=== PATIENT | male | born 1970 | race Caucasian/White ===

== ENCOUNTER 2021-12-27 06:43 | Emergency (ER) | payer MEDICARE, MEDICAID ==
[~2021-12-27] VITALS: Ht 175.3 cm; Wt 87.0 kg
[2021-12-27 08:33] LABS: BASOPHILS % 0.6 % (0.0-2.0); EOSINOPHILS % 1.8 % (0.0-5.0); HEMOGLOBIN. 13.4 g/dL (14.0-18.0); LYMPHOCYTES % 12.8 % (20.0-50.0); MEAN CORPUSCULAR VOLUME 91.8 fL (80.0-94.0); MONOCYTES % 7.2 % (2.0-8.0); NEUTROPHILS % 77.6 % (40.0-76.0); PLATELET 215 x1000/uL (130-400); RED BLOOD CELL COUNT 4.47 mill/uL (4.7-6.1); RED CELL DISTRIBUTION WIDTH 14.2 % (11.6-14.6)
[2021-12-27 08:39] LABS: CHLORIDE 105 mEq/L (98-107)
[2021-12-27] MEDS ORDERED: MIDAZOLAM HCL 2 MG/2 ML VIAL IV ONE (09:45)
[2021-12-27 13:33] LABS: BG BASE EXCESS 0.2 mmol/L (-2.0-2.0); BG CARBOXYHEMOGLOBIN 0.5 % (0.5-1.5); BG DEOXYHEMOGLOBIN 3.8 % (0.0-5.0); BG FRACTION INSPIRED OXYGEN 28; BG HCO3 ACT 25.3 mmol/L (22.0-26.0); BG METHEMOGLOBIN 0.3 % (0.0-1.5); BG OXYGEN SATURATION 96.2 % (92.0-98.5); BG OXYHEMOGLOBIN 95.4 % (94.0-97.0); BG PCO2 42.4 mmHg (35.0-45.0); BG PH 7.393 (7.350-7.450); BG PO2 82.8 mmHg (75.0-100.0); BG SAMPLE SITE LEFT RADIAL; BG TOTAL HEMOGLOBIN 13.7 g/dL (12.0-18.0); BG VENT MODE NASAL CANNULA
[2021-12-27 19:07] VITALS: BP 159/89
== END 2021-12-27 19:11 | disposition home or self-care (01) ==
LOC: ER 06:43
DX: R25.1 Tremor, unspecified (principal); N28.9 Disorder of kidney and ureter, unspecified; I10 Essential (primary) hypertension; I69.320 Aphasia following cerebral infarction
CPT/HCPCS: 36415; 36600; 71045; 80053; 82375; 82805; 85025; 96374; 99284; J2250

== ENCOUNTER 2021-12-30 07:09 | Inpatient (IN) | payer MEDICARE, MEDICAID ==
[~2021-12-30] VITALS: Ht 177.8 cm; Wt 99.8 kg
[2021-12-30] MEDS ORDERED: ACETAMINOPHEN 325MG TABLET PO STA (08:17)
[2021-12-30] MEDS ORDERED: CEFTRIAXONE 1 G PREMIX 50 ML IV ONE (08:30)
[2021-12-30] MEDS ORDERED: SODIUM CHLORIDE 0.9% 1,000 ML IV ONE (08:30)
[2021-12-30 09:07] LABS: CLARITY URINE CLEAR (CLEAR); COLOR URINE DARK YELLOW (YELLOW); KETONES URINE 1+ (NEGATIVE); LEUKOCYTE ESTERASE URINE NEGATIVE (NEGATIVE); NITRITE URINE NEGATIVE (NEGATIVE); OCCULT BLOOD URINE 2+ (NEGATIVE); PH URINE 5.5 (4.5-8.0); PROTEIN URINE 3+ (NEGATIVE); SPECIFIC GRAVITY URINE 1.036 (1.005-1.030)
[2021-12-30 09:08] LABS: HEMATOCRIT. 41.9 % (42.0-52.0); HEMOGLOBIN. 13.9 g/dL (14.0-18.0); MEAN CORPUSCULAR HEMOGLOBIN 30.1 pg (28.0-32.0); MEAN PLATELET VOLUME 9.3 fl (7.4-10.4); PLATELET 232 x1000/uL (130-400); RED BLOOD CELL COUNT 4.61 mill/uL (4.7-6.1); RED CELL DISTRIBUTION WIDTH 14.5 % (11.6-14.6)
[2021-12-30 09:12] LABS: CHLORIDE 113 mEq/L (98-107)
[2021-12-30 10:18] LABS: PLATELET ESTIMATE NORMAL
[2021-12-30] MEDS ORDERED: MIDAZOLAM HCL 2 MG/2 ML VIAL IM ONE (11:00)
[2021-12-30] MEDS ORDERED: KETOROLAC 15MG/ML VIAL IV ONE (12:00)
[2021-12-30] MEDS ORDERED: MIDAZOLAM HCL 2 MG/2 ML VIAL IV ONE (13:00)
[2021-12-30] MEDS ORDERED: HALOPERIDOL LACTATE 5MG/ML VIAL IM ONE (14:00)
[2021-12-30 15:33] VITALS: BP 156/98
[2021-12-30] MEDS ORDERED: LEVETIRACETAM 500MG PREMIX 100 ML IV SCH ×3 (15:45→20:00)
[2021-12-30] MEDS ORDERED: ACETAMINOPHEN 650MG/20.3ML UDC PO ONE (15:45)
[2021-12-30] MEDS ORDERED: LORAZEPAM 1MG TABLET PO PRN ×2 (15:45→16:00)
[2021-12-30 16:00] VITALS: BP 156/98
[2021-12-30] MEDS ORDERED: ACETAMINOPHEN 650MG/20.3ML UDC PO PRN (16:00)
[2021-12-30] MEDS: ACETAMINOPHEN 650MG SUPP PR PRN ×2 (16:27→20:56)
[2021-12-30] MEDS ORDERED: ASPI-1497 PO (17:40)
[2021-12-30] MEDS ORDERED: GABA-532 PO (17:40)
[2021-12-30] MEDS ORDERED: CLON1TAB23 PO (17:40)
[2021-12-30] MEDS ORDERED: BACL20TA PO (17:40)
[2021-12-30] MEDS ORDERED: ATOR40TA70 PO (17:40)
[2021-12-30] MEDS ORDERED: KEPP500 PO (17:42)
[2021-12-30] MEDS ORDERED: PRIM50TA5 PO (17:42)
[2021-12-30] MEDS ORDERED: DEXT 5%/0.45% NACL 1000ML 1,000 ML IV SCH (18:00)
[2021-12-30 20:00] VITALS: BP 122/91
[2021-12-30 20:39] LABS: BG BASE EXCESS 0.4 mmol/L (-2.0-2.0); BG CARBOXYHEMOGLOBIN 0.3 % (0.5-1.5); BG DEOXYHEMOGLOBIN 0.7 % (0.0-5.0); BG FRACTION INSPIRED OXYGEN 100; BG HCO3 ACT 22.8 mmol/L (22.0-26.0); BG METHEMOGLOBIN 0.4 % (0.0-1.5); BG OXYGEN SATURATION 99.3 % (92.0-98.5); BG OXYHEMOGLOBIN 98.6 % (94.0-97.0); BG PCO2 30.4 mmHg (35.0-45.0); BG PH 7.493 (7.350-7.450); BG SAMPLE SITE RIGHT FEMORAL; BG TOTAL HEMOGLOBIN 12.9 g/dL (12.0-18.0); BG VENT MODE MASK - NRB
[2021-12-30] MEDS: DIAZEPAM 5 MG/ML 2ML CPJ IV PRN (20:57)
[2021-12-30] MEDS ORDERED: CLONAZEPAM 1MG TABLET PO SCH (22:00)
[2021-12-31] VITALS (8 sets, daily range): BP systolic 119–178; BP diastolic 60–96
[2021-12-31] MEDS: ACETAMINOPHEN 650MG SUPP PR PRN ×5 (00:52→18:19)
[2021-12-31] MEDS: DIAZEPAM 5 MG/ML 2ML CPJ IV PRN (04:57)
[2021-12-31 06:42] LABS: BASOPHILS % 0.6 % (0.0-2.0); HEMATOCRIT. 39.6 % (42.0-52.0); HEMOGLOBIN. 12.5 g/dL (14.0-18.0); LYMPHOCYTES % 13.1 % (20.0-50.0); MEAN CORPUSCULAR HEMOGLOBIN 29.7 pg (28.0-32.0); NEUTROPHILS % 75.3 % (40.0-76.0); RED BLOOD CELL COUNT 4.21 mill/uL (4.7-6.1); RED CELL DISTRIBUTION WIDTH 14.9 % (11.6-14.6)
[2021-12-31] MEDS ORDERED: POTASSIUM CHLORIDE INJ 40 MEQ in DEXT 5% WATER 250 ML IV ONE (08:15)
[2021-12-31] MEDS ORDERED: LORAZEPAM 1MG TABLET PO PRN (08:45)
[2021-12-31] MEDS ORDERED: CEFTRIAXONE 1,000 MG in DEXTROSE 5% WATER 50 ML IV SCH (09:00)
[2021-12-31] MEDS: DEXTROSE 5% WATER 1,000 ML IV SCH ×2 (09:34→17:34)
[2021-12-31 09:46] LABS: BG BASE EXCESS -1.7 mmol/L (-2.0-2.0); BG CARBOXYHEMOGLOBIN 0.3 % (0.5-1.5); BG DEOXYHEMOGLOBIN 1.2 % (0.0-5.0); BG FRACTION INSPIRED OXYGEN 100; BG HCO3 ACT 21.3 mmol/L (22.0-26.0); BG METHEMOGLOBIN 0.4 % (0.0-1.5); BG OXYGEN SATURATION 98.8 % (92.0-98.5); BG OXYHEMOGLOBIN 98.1 % (94.0-97.0); BG PCO2 31.1 mmHg (35.0-45.0); BG PH 7.453 (7.350-7.450); BG PO2 170.8 mmHg (75.0-100.0); BG SAMPLE SITE RIGHT RADIAL; BG TOTAL HEMOGLOBIN 13.7 g/dL (12.0-18.0); BG VENT MODE MASK - NRB
[2021-12-31 09:48] LABS: PLATELET 91 x1000/uL (130-400)
[2021-12-31] MEDS ORDERED: LORAZEPAM 2MG/ML CPJ IV NR (10:15)
[2021-12-31] MEDS ORDERED: LIDOCAINE HCL/PF 1% 10 MG/ML 5ML VIAL ONE (12:56)
[2021-12-31] MEDS ORDERED: VANCOMYCIN 2,000 MG in DEXT 5% WATER 500 ML IV SCH (13:00)
[2021-12-31] MEDS: LEVETIRACETAM 500MG PREMIX 100 ML IV SCH ×2 (13:05→22:18)
[2021-12-31] MEDS: ACETYLCYSTEINE 100MG/ML 10% VIAL 4ML INH SCH (13:17)
[2021-12-31] MEDS: IPRATROPIUM BROMIDE (0.02%) 0.5MG/2.5ML NEB HHN SCH (13:17)
[2021-12-31] MEDS: KCL 20MEQ/100ML X 2 FOR TOTAL KCL 40MEQ/200ML IV SCH ×2 (14:10→17:18)
[2021-12-31] MEDS: METRONIDAZOLE 500 MG PREMIX 100 ML IV SCH ×2 (17:33→22:17)
[2021-12-31 17:38] LABS: PARTIAL THROMBOPLASTIN TIME 28.7 sec (23.4-31.0); PROTHROMBIN TIME 10.9 sec (9.6-11.0)
[2021-12-31 21:58] LABS: CREATINE KINASE 27108 IU/L (39-308)
[2022-01-01] VITALS (12 sets, daily range): BP systolic 51–136; BP diastolic 20–91
[2022-01-01] MEDS: IPRATROPIUM BROMIDE (0.02%) 0.5MG/2.5ML NEB HHN SCH ×3 (00:20→16:36)
[2022-01-01] MEDS: ACETYLCYSTEINE 100MG/ML 10% VIAL 4ML INH SCH ×3 (00:21→16:36)
[2022-01-01] MEDS: DEXTROSE 5% WATER 1,000 ML IV SCH (00:48)
[2022-01-01] MEDS ORDERED: VANCOMYCIN 1GM PMX (XELLIA) 200 ML IV SCH (06:00)
[2022-01-01] MEDS: LEVETIRACETAM 500MG PREMIX 100 ML IV SCH ×2 (09:00→20:48)
[2022-01-01] MEDS ORDERED: CEFTRIAXONE 1 G PREMIX 50 ML IV SCH (11:30)
[2022-01-01] MEDS: SODIUM BICARBONATE 100 MEQ in DEXTROSE 5% WATER 1,000 ML IV SCH ×2 (12:58→20:48)
[2022-01-01] MEDS: CEFTRIAXONE 1,000 MG in DEXTROSE 5% WATER 50 ML IV SCH (12:58)
[2022-01-01] MEDS: METRONIDAZOLE 500 MG PREMIX 100 ML IV SCH ×2 (12:59→20:48)
[2022-01-01 14:21] LABS: *AMPHETAMINES SCREEN URINE PRESUMTIVE POSITIVE (NEGATIVE); *BARBITURATES SCREEN URINE NEGATIVE (NEGATIVE); *BENZODIAZEPINES SCREEN URINE PRESUMTIVE POSITIVE (NEGATIVE); *COCAINE SCREEN URINE NEGATIVE (NEGATIVE); CANNABINOID URINE SCREEN NEGATIVE (NEGATIVE); METHADONE URINE SCREEN NEGATIVE (NEGATIVE); OPIATES URINE SCREEN NEGATIVE (NEGATIVE); PHENCYCLIDINE URINE SCREEN NEGATIVE (NEGATIVE)
[2022-01-01] MEDS: PANTOPRAZOLE SODIUM 40 MG/VIAL IV SCH (16:27)
[2022-01-01] MEDS: ACETAMINOPHEN 650MG SUPP PR PRN (17:03)
[2022-01-01 17:11] LABS: CREATINE KINASE > 51000 IU/L (39-308)
[2022-01-01 18:48] LABS: TOTAL IRON BINDING CAPACITY 247 ug/dL (250-450)
[2022-01-01 19:21] LABS: FOLIC ACID (FOLATE) SERUM 14.3 ng/mL (>5.38)
[2022-01-01] MEDS ORDERED: BISACODYL 10MG SUPP PR NR (21:00)
[2022-01-02] VITALS (12 sets, daily range): BP systolic 90–162; BP diastolic 26–89
[2022-01-02] MEDS: IPRATROPIUM BROMIDE (0.02%) 0.5MG/2.5ML NEB HHN SCH ×3 (00:10→16:57)
[2022-01-02] MEDS: ACETYLCYSTEINE 100MG/ML 10% VIAL 4ML INH SCH ×3 (00:10→16:57)
[2022-01-02] MEDS: SODIUM BICARBONATE 100 MEQ in DEXTROSE 5% WATER 1,000 ML IV SCH ×2 (05:06→16:33)
[2022-01-02] MEDS: METRONIDAZOLE 500 MG PREMIX 100 ML IV SCH ×3 (05:06→22:47)
[2022-01-02 06:12] LABS: HEMATOCRIT. 38.2 % (42.0-52.0); HEMOGLOBIN. 12.6 g/dL (14.0-18.0); MEAN CORPUSCULAR HEMOGLOBIN 29.8 pg (28.0-32.0); MEAN CORPUSCULAR VOLUME 90.2 fL (80.0-94.0); MEAN PLATELET VOLUME 11.1 fl (7.4-10.4); PLATELET 59 x1000/uL (130-400); RED BLOOD CELL COUNT 4.24 mill/uL (4.7-6.1); RED CELL DISTRIBUTION WIDTH 15.1 % (11.6-14.6)
[2022-01-02 07:07] LABS: CHLORIDE 111 mEq/L (98-107)
[2022-01-02 08:31] LABS: BG BASE EXCESS 0.7 mmol/L (-2.0-2.0); BG CARBOXYHEMOGLOBIN 0.2 % (0.5-1.5); BG DEOXYHEMOGLOBIN 0.8 % (0.0-5.0); BG FRACTION INSPIRED OXYGEN 80; BG HCO3 ACT 24.5 mmol/L (22.0-26.0); BG METHEMOGLOBIN 0.4 % (0.0-1.5); BG OXYGEN SATURATION 99.2 % (92.0-98.5); BG OXYHEMOGLOBIN 98.6 % (94.0-97.0); BG PCO2 36.6 mmHg (35.0-45.0); BG PH 7.444 (7.350-7.450); BG PO2 192.5 mmHg (75.0-100.0); BG SAMPLE SITE RIGHT RADIAL; BG VENT MODE HIGH FLOW
[2022-01-02] MEDS: LEVETIRACETAM 500MG PREMIX 100 ML IV SCH ×2 (08:44→21:10)
[2022-01-02] MEDS: PANTOPRAZOLE SODIUM 40 MG/VIAL IV SCH (08:44)
[2022-01-02 09:57] LABS: CREATINE KINASE 90984 IU/L (39-308)
[2022-01-02] MEDS: CEFTRIAXONE 1,000 MG in DEXTROSE 5% WATER 50 ML IV SCH (11:05)
[2022-01-02] MEDS ORDERED: KCL 20MEQ/100ML PREMIX 100 ML IV NR (12:00)
[2022-01-02] MEDS: METOPROLOL TARTRATE 5MG/5ML VIAL IV PRN (14:54)
[2022-01-02] MEDS ORDERED: KCL 20MEQ/100ML PREMIX 100 ML IV SCH (16:00)
[2022-01-03] VITALS (12 sets, daily range): BP systolic 86–184; BP diastolic 34–136
[2022-01-03] MEDS: ACETYLCYSTEINE 100MG/ML 10% VIAL 4ML INH SCH ×2 (00:34→08:11)
[2022-01-03] MEDS: IPRATROPIUM BROMIDE (0.02%) 0.5MG/2.5ML NEB HHN SCH ×3 (00:34→17:09)
[2022-01-03] MEDS: METOPROLOL TARTRATE 5MG/5ML VIAL IV PRN ×2 (00:57→13:17)
[2022-01-03] MEDS: SODIUM BICARBONATE 100 MEQ in DEXTROSE 5% WATER 1,000 ML IV SCH ×2 (01:07→09:15)
[2022-01-03] MEDS: METRONIDAZOLE 500 MG PREMIX 100 ML IV SCH ×3 (05:12→21:18)
[2022-01-03 06:17] LABS: HEMATOCRIT. 32.9 % (42.0-52.0); HEMOGLOBIN. 11.1 g/dL (14.0-18.0); MEAN CORPUSCULAR HEMOGLOBIN 30.3 pg (28.0-32.0); MEAN CORPUSCULAR VOLUME 89.9 fL (80.0-94.0); MEAN PLATELET VOLUME 11.8 fl (7.4-10.4); PLATELET 52 x1000/uL (130-400); RED BLOOD CELL COUNT 3.66 mill/uL (4.7-6.1); RED CELL DISTRIBUTION WIDTH 14.4 % (11.6-14.6)
[2022-01-03 06:34] LABS: CHLORIDE 102 mEq/L (98-107)
[2022-01-03] MEDS: LEVETIRACETAM 500MG PREMIX 100 ML IV SCH ×2 (09:15→20:17)
[2022-01-03] MEDS: PANTOPRAZOLE SODIUM 40 MG/VIAL IV SCH (09:15)
[2022-01-03 10:51] LABS: PLATELET ESTIMATE MARKEDLY DECREASED
[2022-01-03] MEDS: SODIUM CHLORIDE 0.9% 1,000 ML IV SCH ×2 (10:56→20:17)
[2022-01-03] MEDS: CEFTRIAXONE 1,000 MG in DEXTROSE 5% WATER 50 ML IV SCH (11:19)
[2022-01-03 13:55] LABS: PLATELET ESTIMATE MARKEDLY DECREASED
[2022-01-04] VITALS (12 sets, daily range): BP systolic 103–149; BP diastolic 63–95
[2022-01-04] MEDS: ACETYLCYSTEINE 100MG/ML 10% VIAL 4ML INH SCH ×3 (00:10→15:52)
[2022-01-04] MEDS: IPRATROPIUM BROMIDE (0.02%) 0.5MG/2.5ML NEB HHN SCH ×2 (00:10→08:18)
[2022-01-04] MEDS: METRONIDAZOLE 500 MG PREMIX 100 ML IV SCH ×3 (06:08→21:53)
[2022-01-04] MEDS: SODIUM CHLORIDE 0.9% 1,000 ML IV SCH ×2 (06:08→17:17)
[2022-01-04 06:46] LABS: HEMATOCRIT. 30.6 % (42.0-52.0); HEMOGLOBIN. 10.2 g/dL (14.0-18.0); MEAN CORPUSCULAR HEMOGLOBIN 30.5 pg (28.0-32.0); MEAN CORPUSCULAR VOLUME 90.9 fL (80.0-94.0); MEAN PLATELET VOLUME 10.5 fl (7.4-10.4); PLATELET 67 x1000/uL (130-400); RED BLOOD CELL COUNT 3.36 mill/uL (4.7-6.1); RED CELL DISTRIBUTION WIDTH 14.6 % (11.6-14.6)
[2022-01-04] MEDS: LEVETIRACETAM 500MG PREMIX 100 ML IV SCH ×2 (09:32→21:52)
[2022-01-04] MEDS: PANTOPRAZOLE SODIUM 40 MG/VIAL IV SCH (09:33)
[2022-01-04] MEDS: CEFTRIAXONE 1,000 MG in DEXTROSE 5% WATER 50 ML IV SCH (11:51)
[2022-01-04] MEDS: IPRATROPIUM/ALBUTEROL 0.5-3(2.5)MG/3ML NEB HHN SCH (15:52)
[2022-01-04] MEDS ORDERED: FAMOTIDINE 20MG/2ML VIAL IV SCH (21:00)
[2022-01-05] VITALS (12 sets, daily range): BP systolic 113–164; BP diastolic 17–109
[2022-01-05] MEDS: ACETYLCYSTEINE 100MG/ML 10% VIAL 4ML INH SCH ×2 (00:19→08:11)
[2022-01-05] MEDS: IPRATROPIUM/ALBUTEROL 0.5-3(2.5)MG/3ML NEB HHN SCH ×4 (00:20→22:00)
[2022-01-05] MEDS: SODIUM CHLORIDE 0.9% 1,000 ML IV SCH ×3 (02:39→17:03)
[2022-01-05] MEDS: METRONIDAZOLE 500 MG PREMIX 100 ML IV SCH ×3 (05:39→22:15)
[2022-01-05] MEDS ORDERED: PHENYTOIN SODIUM 1,000 MG in SODIUM CHLORIDE 0.9% 100 ML IV NR (07:30)
[2022-01-05] MEDS: FAMOTIDINE 20MG/2ML VIAL IV SCH (08:08)
[2022-01-05] MEDS: METOPROLOL TARTRATE 5MG/5ML VIAL IV PRN (09:05)
[2022-01-05] MEDS: CEFTRIAXONE 1,000 MG in DEXTROSE 5% WATER 50 ML IV SCH (12:13)
[2022-01-05 13:06] LABS: ANTI-NUCLEAR ANTIBODIES DIRECT Negative (Negative); ATYPICAL P-ANCA <1:20 titer (Neg:<1:20); CYTOPLASMIC C-ANCA <1:20 titer (Neg:<1:20); PERINUCLEAR P-ANCA <1:20 titer (Neg:<1:20)
[2022-01-05 13:55] LABS: PLATELET ESTIMATE DECREASED
[2022-01-05] MEDS: PHENYTOIN SODIUM EXTENDED 100MG CAPSULE PO SCH ×2 (14:27→22:14)
[2022-01-05 19:09] LABS: ANTI-MYELOPEROXIDASE AB < 0.2 units (0.0-0.9); ANTI-PROTEINASE 3 ABS < 0.2 units (0.0-0.9)
[2022-01-06] VITALS (12 sets, daily range): BP systolic 121–169; BP diastolic 74–102
[2022-01-06 06:38] LABS: HEMATOCRIT. 32.4 % (42.0-52.0); HEMOGLOBIN. 10.7 g/dL (14.0-18.0); MEAN CORPUSCULAR HEMOGLOBIN 30.3 pg (28.0-32.0); MEAN CORPUSCULAR VOLUME 92.2 fL (80.0-94.0); MEAN PLATELET VOLUME 9.3 fl (7.4-10.4); PLATELET 190 x1000/uL (130-400); RED BLOOD CELL COUNT 3.52 mill/uL (4.7-6.1); RED CELL DISTRIBUTION WIDTH 14.8 % (11.6-14.6)
[2022-01-06 06:45] LABS: PHOSPHORUS 4.8 mg/dL (2.5-4.9)
[2022-01-06] MEDS: FAMOTIDINE 20MG/2ML VIAL IV SCH (09:14)
[2022-01-06] MEDS: PHENYTOIN SODIUM EXTENDED 100MG CAPSULE PO SCH ×3 (09:16→21:36)
[2022-01-06] MEDS: SODIUM CHLORIDE 0.45% 1,000 ML IV SCH ×2 (09:37→17:38)
[2022-01-06] MEDS: AMLODIPINE 10MG TABLET PO SCH (09:37)
[2022-01-06] MEDS: IPRATROPIUM/ALBUTEROL 0.5-3(2.5)MG/3ML NEB HHN SCH ×2 (09:40→14:15)
[2022-01-06] MEDS ORDERED: BISACODYL 10MG SUPP PR NR (12:00)
[2022-01-06] MEDS ORDERED: FAMOTIDINE 20MG TABLET PO SCH (16:07)
[2022-01-06 21:44] LABS: PLATELET ESTIMATE NORMAL
[2022-01-07] VITALS (12 sets, daily range): BP systolic 129–177; BP diastolic 54–101
[2022-01-07] MEDS: IPRATROPIUM/ALBUTEROL 0.5-3(2.5)MG/3ML NEB HHN SCH ×4 (00:40→20:39)
[2022-01-07] MEDS: PHENYTOIN SODIUM EXTENDED 100MG CAPSULE PO SCH ×4 (05:02→20:20)
[2022-01-07] MEDS: SODIUM CHLORIDE 0.45% 1,000 ML IV SCH (05:02)
[2022-01-07 06:46] LABS: BASOPHILS % 0.3 % (0.0-2.0); EOSINOPHILS % 0.2 % (0.0-5.0); HEMATOCRIT. 34.3 % (42.0-52.0); HEMOGLOBIN. 11.4 g/dL (14.0-18.0); LYMPHOCYTES % 9.6 % (20.0-50.0); MEAN CORPUSCULAR HEMOGLOBIN 30.5 pg (28.0-32.0); MEAN CORPUSCULAR VOLUME 91.4 fL (80.0-94.0); MEAN PLATELET VOLUME 9.4 fl (7.4-10.4); MONOCYTES % 14.4 % (2.0-8.0); NEUTROPHILS % 75.5 % (40.0-76.0); PLATELET 263 x1000/uL (130-400); RED BLOOD CELL COUNT 3.75 mill/uL (4.7-6.1); RED CELL DISTRIBUTION WIDTH 14.5 % (11.6-14.6)
[2022-01-07] MEDS: FAMOTIDINE 20MG TABLET PO SCH (10:00)
[2022-01-07] MEDS: AMLODIPINE 10MG TABLET PO SCH (10:00)
[2022-01-07] MEDS: FUROSEMIDE 40MG/4ML VIAL IVP SCH (15:00)
[2022-01-08] VITALS (12 sets, daily range): BP systolic 126–154; BP diastolic 51–101
[2022-01-08 06:58] LABS: BASOPHILS % 0.3 % (0.0-2.0); EOSINOPHILS % 0.2 % (0.0-5.0); HEMATOCRIT. 30.1 % (42.0-52.0); HEMOGLOBIN. 9.9 g/dL (14.0-18.0); LYMPHOCYTES % 9.9 % (20.0-50.0); MEAN CORPUSCULAR HEMOGLOBIN 30.3 pg (28.0-32.0); MEAN CORPUSCULAR VOLUME 91.8 fL (80.0-94.0); MEAN PLATELET VOLUME 8.7 fl (7.4-10.4); MONOCYTES % 12.7 % (2.0-8.0); NEUTROPHILS % 76.9 % (40.0-76.0); PLATELET 258 x1000/uL (130-400); RED BLOOD CELL COUNT 3.28 mill/uL (4.7-6.1); RED CELL DISTRIBUTION WIDTH 14.2 % (11.6-14.6)
[2022-01-08] MEDS: FAMOTIDINE 20MG TABLET PO SCH (08:22)
[2022-01-08] MEDS: PHENYTOIN SODIUM EXTENDED 100MG CAPSULE PO SCH ×2 (08:22→21:38)
[2022-01-08] MEDS: FUROSEMIDE 40MG/4ML VIAL IVP SCH (08:22)
[2022-01-08] MEDS: AMLODIPINE 10MG TABLET PO SCH (08:25)
[2022-01-08] MEDS ORDERED: IPRATROPIUM BROMIDE (0.02%) 0.5MG/2.5ML NEB HHN PRN (11:00)
[2022-01-08 12:30] LABS: CREATINE KINASE 5150 IU/L (39-308)
[2022-01-08 17:40] LABS: HEPATITIS B SURFACE ANTIGEN NEGATIVE
[2022-01-08] MEDS ORDERED: ALTEPLASE 2MG/VIAL ITC ONE (22:00)
[2022-01-09] VITALS (12 sets, daily range): BP systolic 109–149; BP diastolic 47–95
[2022-01-09 07:36] LABS: BASOPHILS % 0.4 % (0.0-2.0); EOSINOPHILS % 0.1 % (0.0-5.0); HEMATOCRIT. 29.3 % (42.0-52.0); HEMOGLOBIN. 9.5 g/dL (14.0-18.0); LYMPHOCYTES % 8.4 % (20.0-50.0); MEAN CORPUSCULAR HEMOGLOBIN 29.9 pg (28.0-32.0); MEAN CORPUSCULAR VOLUME 92.4 fL (80.0-94.0); MEAN PLATELET VOLUME 8.5 fl (7.4-10.4); MONOCYTES % 12.2 % (2.0-8.0); NEUTROPHILS % 78.9 % (40.0-76.0); PLATELET 246 x1000/uL (130-400); RED BLOOD CELL COUNT 3.17 mill/uL (4.7-6.1); RED CELL DISTRIBUTION WIDTH 14.5 % (11.6-14.6)
[2022-01-09 08:00] LABS: CHLORIDE 107 mEq/L (98-107)
[2022-01-09] MEDS: FUROSEMIDE 40MG/4ML VIAL IVP SCH (08:04)
[2022-01-09] MEDS: PHENYTOIN SODIUM EXTENDED 100MG CAPSULE PO SCH ×2 (08:04→20:46)
[2022-01-09] MEDS: AMLODIPINE 10MG TABLET PO SCH (08:05)
[2022-01-09] MEDS: FAMOTIDINE 20MG TABLET PO SCH (08:05)
[2022-01-09] MEDS ORDERED: ALTEPLASE 2MG/VIAL ITC NR (09:00)
[2022-01-10] VITALS (13 sets, daily range): BP systolic 105–160; BP diastolic 49–106
[2022-01-10] MEDS: METOPROLOL TARTRATE 5MG/5ML VIAL IV PRN (05:20)
[2022-01-10 06:27] LABS: BASOPHILS % 0.3 % (0.0-2.0); HEMATOCRIT. 31.5 % (42.0-52.0); HEMOGLOBIN. 10.5 g/dL (14.0-18.0); LYMPHOCYTES % 10.3 % (20.0-50.0); MEAN CORPUSCULAR HEMOGLOBIN 30.7 pg (28.0-32.0); MEAN PLATELET VOLUME 8.4 fl (7.4-10.4); MONOCYTES % 12.3 % (2.0-8.0); NEUTROPHILS % 77.1 % (40.0-76.0); PLATELET 269 x1000/uL (130-400); RED BLOOD CELL COUNT 3.43 mill/uL (4.7-6.1); RED CELL DISTRIBUTION WIDTH 14.4 % (11.6-14.6)
[2022-01-10 06:34] LABS: CHLORIDE 103 mEq/L (98-107)
[2022-01-10] MEDS: AMLODIPINE 10MG TABLET PO SCH (08:10)
[2022-01-10] MEDS: PHENYTOIN SODIUM EXTENDED 100MG CAPSULE PO SCH ×2 (08:10→20:43)
[2022-01-10] MEDS: FUROSEMIDE 40MG/4ML VIAL IVP SCH (08:10)
[2022-01-10] MEDS: FAMOTIDINE 20MG TABLET PO SCH (08:10)
[2022-01-11] VITALS (12 sets, daily range): BP systolic 125–165; BP diastolic 54–105
[2022-01-11 06:04] LABS: BASOPHILS % 0.8 % (0.0-2.0); HEMATOCRIT. 29.3 % (42.0-52.0); HEMOGLOBIN. 9.7 g/dL (14.0-18.0); LYMPHOCYTES % 9.4 % (20.0-50.0); MEAN CORPUSCULAR HEMOGLOBIN 30.7 pg (28.0-32.0); MEAN CORPUSCULAR VOLUME 92.5 fL (80.0-94.0); MEAN PLATELET VOLUME 8.4 fl (7.4-10.4); MONOCYTES % 13.3 % (2.0-8.0); NEUTROPHILS % 76.5 % (40.0-76.0); PLATELET 266 x1000/uL (130-400); RED BLOOD CELL COUNT 3.17 mill/uL (4.7-6.1); RED CELL DISTRIBUTION WIDTH 14.7 % (11.6-14.6)
[2022-01-11] MEDS: FUROSEMIDE 40MG/4ML VIAL IVP SCH (08:50)
[2022-01-11] MEDS: AMLODIPINE 10MG TABLET PO SCH (08:55)
[2022-01-11] MEDS: FAMOTIDINE 20MG TABLET PO SCH (08:55)
[2022-01-11] MEDS: PHENYTOIN SODIUM EXTENDED 100MG CAPSULE PO SCH ×2 (08:55→20:23)
[2022-01-11] MEDS ORDERED: DIAZEPAM 5 MG/ML 2ML CPJ IV ONE (15:00)
[2022-01-11] MEDS ORDERED: LORAZEPAM 2MG/ML CPJ IV PRN (15:00)
[2022-01-11] MEDS ORDERED: DIAZEPAM 5 MG/ML 2ML CPJ IV PRN (15:15)
[2022-01-11] MEDS: METOPROLOL TARTRATE 5MG/5ML VIAL IV PRN (20:35)
[2022-01-12] VITALS (13 sets, daily range): BP systolic 115–151; BP diastolic 49–103
[2022-01-12 06:18] LABS: HEMATOCRIT. 27.6 % (42.0-52.0); HEMOGLOBIN. 9.1 g/dL (14.0-18.0); MEAN CORPUSCULAR HEMOGLOBIN 30.8 pg (28.0-32.0); MEAN CORPUSCULAR VOLUME 93.1 fL (80.0-94.0); MEAN PLATELET VOLUME 8.4 fl (7.4-10.4); PLATELET 249 x1000/uL (130-400); RED BLOOD CELL COUNT 2.96 mill/uL (4.7-6.1); RED CELL DISTRIBUTION WIDTH 14.9 % (11.6-14.6)
[2022-01-12] MEDS: AMLODIPINE 10MG TABLET PO SCH (09:00)
[2022-01-12 11:55] LABS: PLATELET ESTIMATE NORMAL
[2022-01-12] MEDS: FUROSEMIDE 40MG/4ML VIAL IVP SCH (12:42)
[2022-01-12] MEDS: PHENYTOIN SODIUM EXTENDED 100MG CAPSULE PO SCH (12:42)
[2022-01-12] MEDS: FAMOTIDINE 20MG TABLET PO SCH (12:42)
[2022-01-12] MEDS ORDERED: BISACODYL 10MG SUPP PR NR (15:45)
[2022-01-12 16:32] LABS: BASOPHILS % 0.7 % (0.0-2.0); HEMATOCRIT. 29.7 % (42.0-52.0); HEMOGLOBIN. 9.8 g/dL (14.0-18.0); LYMPHOCYTES % 10.1 % (20.0-50.0); MEAN CORPUSCULAR HEMOGLOBIN 30.3 pg (28.0-32.0); MEAN PLATELET VOLUME 7.9 fl (7.4-10.4); MONOCYTES % 14.9 % (2.0-8.0); NEUTROPHILS % 74.3 % (40.0-76.0); PLATELET 275 x1000/uL (130-400); RED BLOOD CELL COUNT 3.23 mill/uL (4.7-6.1); RED CELL DISTRIBUTION WIDTH 14.7 % (11.6-14.6)
[2022-01-12 16:43] LABS: CHLORIDE 105 mEq/L (98-107)
== END 2022-01-12 21:00 | DRG 871 ==
LOC: ER 07:18 → EDBEDREQTM 10:14 → EDBEDREQ 10:14 → ENRESERV 11:54 → 8WST 16:05 → 5EST 12-31 09:24
PROVIDERS: ADMIT Internal Medicine; ATTEND Internal Medicine
PROC: 02HV33Z Insertion of Infusion Device into Superior Vena Cava, Percutaneous Approach (ICD-10-PCS; 2021-12-31)
PROC: B548ZZA Ultrasonography of Superior Vena Cava, Guidance (ICD-10-PCS; 2021-12-31)
PROC: 5A0945A Assistance with Respiratory Ventilation, 24-96 Consecutive Hours, High Flow/Velocity Cannula (ICD-10-PCS; 2021-12-31)
PROC: 4A00X4Z Measurement of Central Nervous Electrical Activity, External Approach (ICD-10-PCS; principal; 2022-01-02)
PROC: 4A00X4Z Measurement of Central Nervous Electrical Activity, External Approach (ICD-10-PCS; 2022-01-07)
PROC: 02H633Z Insertion of Infusion Device into Right Atrium, Percutaneous Approach (ICD-10-PCS; 2022-01-08)
PROC: B548ZZA Ultrasonography of Superior Vena Cava, Guidance (ICD-10-PCS; 2022-01-08)
PROC: 5A1D70Z Performance of Urinary Filtration, Intermittent, Less than 6 Hours Per Day (ICD-10-PCS; 2022-01-08)
PROC: 5A1D70Z Performance of Urinary Filtration, Intermittent, Less than 6 Hours Per Day (ICD-10-PCS; 2022-01-09)
PROC: 5A1D70Z Performance of Urinary Filtration, Intermittent, Less than 6 Hours Per Day (ICD-10-PCS; 2022-01-10)
PROC: 5A1D70Z Performance of Urinary Filtration, Intermittent, Less than 6 Hours Per Day (ICD-10-PCS; 2022-01-12)
DX: A41.9 Sepsis, unspecified organism (principal); E43 Unspecified severe protein-calorie malnutrition; G92.8 Other toxic encephalopathy; J96.01 Acute respiratory failure with hypoxia; J69.0 Pneumonitis due to inhalation of food and vomit; E87.0 Hyperosmolality and hypernatremia; N17.9 Acute kidney failure, unspecified; M62.82 Rhabdomyolysis; I69.354 Hemiplegia and hemiparesis following cerebral infarction affecting left non-dominant side; E72.20 Disorder of urea cycle metabolism, unspecified; Z20.822 Contact with and (suspected) exposure to COVID-19; R62.7 Adult failure to thrive; E83.51 Hypocalcemia; D69.6 Thrombocytopenia, unspecified; G25.5 Other chorea; E86.0 Dehydration; E87.8 Other disorders of electrolyte and fluid balance, not elsewhere classified; R74.01 Elevation of levels of liver transaminase levels; K56.41 Fecal impaction; E86.9 Volume depletion, unspecified; E87.6 Hypokalemia; G40.909 Epilepsy, unspecified, not intractable, without status epilepticus; E78.00 Pure hypercholesterolemia, unspecified; I12.9 Hypertensive chronic kidney disease with stage 1 through stage 4 chronic kidney disease, or unspecified chronic kidney disease; N18.9 Chronic kidney disease, unspecified; E78.5 Hyperlipidemia, unspecified; D72.821 Monocytosis (symptomatic); F32.A Depression, unspecified; F19.10 Other psychoactive substance abuse, uncomplicated; Z68.31 Body mass index [BMI] 31.0-31.9, adult; Z87.891 Personal history of nicotine dependence; Z86.16 Personal history of COVID-19
CPT/HCPCS: 36415; 36556; 36573; 36600; 71045; 74018; 74176; 76770; 76937; 80048; 80053; 80076; 80185; 80202; 80305; 81003; 82085; 82140; 82270; 82375; 82550; 82607; 82728; 82746; 82805; 82962; 83036; 83520; 83540; 83550; 83605; 83615; 83735; 83880; 84100; 84145; 84443; 84484; 85025; 85044; 85651; 86038; 86256; 86705; 86709; 86803; 87070; 87340; 87426; 87804; 92610; 93005; 94640; 95816; 99291; A6261; C1725; C1752; C1893; C9113; J0696; J1165; J1885; J1940; J1953; J2060; J2250; J2997; J3370; J3480; J3490; J7030; J7050; J7060; J7070; J7608; A4315